=== PATIENT | female | born 1985 | race African-American/Black ===

== ENCOUNTER 2023-10-23 16:57 | Emergency (ER) | payer SELFPAY ==
--- NOTE | ~2023-10-23 | XR_ITS ---
EXAMINATION: XR CHEST CLINICAL INFORMATION: Cough. Chest pain. COMPARISON: None available. TECHNIQUE: 2 views of the chest were obtained. FINDINGS: Heart size is normal. The lungs are clear. There is no pleural effusion or pneumothorax. No acute osseous abnormality. XR/XR chest 2V IMPRESSION: No acute cardiopulmonary disease.
--- NOTE | 2023-10-23 17:08 | ED_ITS ---
HPI - General Adult General Chief complaint: Upper Respiratory Symptoms Stated complaint: covid +, sore throat, hx of cancer Time Seen by Provider: 10/23/23 18:18 Source: patient Mode of arrival: ambulatory Limitations: no limitations History of Present Illness ED Provider: DELL MANCINI narrative: 38 yo female s/p finishing treatment for lymphoma (lives in [facility] and her treatment is there) completed therapy June and has been traveling to see friends and family. Just came back from [place] and has been sick with scratchy throat, cough, weakness, runny nose, headaches, body aches worsening x 7 days. She is not vaccinated against COVID. She took a test and was positive today came to ED to get checked out. She states her hands feel tingly as well she had this with chemo it went away and now it is back MD complaint: viral syndrome Onset (ago): day(s) (7) Location: head, mouth and chest Radiation: non-radiation Severity: moderate Quality: aching Pain Consistency: constant Relieving factors: none Exacerbating factors: movement Associated symptoms: cough, fever/chills, headaches, loss of appetite, malaise and weakness Treatments prior to arrival: none Related Data Allergies Allergy/AdvReac Type Severity Reaction Status Date / Time No Known Allergies Allergy Verified 10/23/23 17:13 Review of Systems 2 Review of Systems: Constitutional : No Fever, pos Chills, pos Fatigue ENT/Mouth : pos sore throat, pos Rhinorrhea Eyes: No Eye Pain, No Swelling, No Redness Cardiovascular : No Chest Pain, No SOB, No Dyspnea on Exertion Respiratory : No Cough, No Sputum Gastrointestinal : No Nausea, No Vomiting, No Diarrhea, No abdominal Pain Genitourinary : No Dysuria, No Urinary Frequency, No Hematuria, Musculoskeletal : No joint pain, No Myalgias, No Joint Swelling Skin : No Skin Lesions, No rash Neuro : pos Weakness, No Numbness, No Dizziness, positive Headache Psych : No Anxiety/Panic, No Depression All other systems reviewed and are negative [facility]LY [facility] Past Medical History Attestation statement: The following information was validated with the patient. Source: old records reviewed Medical History Lymphoma Social History Social History (Updated 10/23/23 @ 19:07 by Dulce Olmos DO) Alcohol intake: current Alcohol intake frequency: holidays/special occasions only Patient Tobacco Use Status: Never used Tobacco Smoked in Last 30 Days: No Use of substances other than those prescribed or required for medical reasons: Yes Substance Use Type: Marijuana Advance Directives: No Advance Directives Information Provided: No Patient : No Physical Exam ED Vital Signs: Vital Signs - 24 hr 10/23/23 17:09 10/23/23 19:03 Temperature 98.1 F 99.1 F Pulse Rate 108 H 110 H Respiratory Rate 18 20 Blood Pressure 113/73 118/69 Pulse Oximetry 100 99 Oxygen Delivery Method Room Air Room Air BMI result Body Mass Index 21.7 Appearance: Alert. Oriented X3. No acute distress. Eyes: Pupils equal, round and reactive to light. ENT: Pharynx mild erythema no exudates Neck: Normal inspection. Neck supple. CVS: Normal heart rate and rhythm. Pulses normal. Respiratory: No respiratory distress. Breath sounds normal. dry hacking cough Abdomen: Soft and nontender. Skin: Skin warm and dry. Normal skin color. Normal skin turgor. Extremities: No lower extremity edema. Neuro: Oriented X 3. No motor deficit. No sensory deficit. Course Course Course Narrative: This is an RME: Additional HPI, ROS, PE not included below will be deferred to primary provider. RME assessment and note performed by: Moni Woodruff PA-C This is a [id number], with a hx of lymphoma just completed chemotherapy in June, presenting to the ER with complaints of cough, runny nose, headache, body aches x 7 days. Recent travel from [place] to [place]. Pt states that she tested positive for COVID today. Plan: viral swabs, CXR Reevaluation(s) Reevaluation #1: ddimer positive CTA ordered Reevaluation #2: signed out to Dr. Green pending CTA Medications Administered Discontinued Medications Generic Name Dose Route Start Last Admin Trade Name Freq PRN Reason Stop Dose Admin Acetaminophen 975 mg 10/23/23 18:28 10/23/23 18:40 Acetaminophen 325 Mg Tablet PO 10/23/23 18:29 975 mg ONCE ONE Administration Sodium Chloride 1,000 mls @ 999 mls/hr 10/23/23 18:28 10/23/23 19:09 Ns IV 10/23/23 19:28 999 mls/hr .Q1H1M ONE Administration Medical Decision Making Medical Decision Making MDM Narrative: 38 yo female with PMH of lymphoma she cannot tell me exactly what kind and she lives in [facility] - she notes she had last treatment in June now is traveling to see friends and family at this time she contracted viral illness during her travels with URI symptoms and cough - + for COVID but 7 days of symptoms out of window for paxlovid - given her complaints will obtain labs, EKG, ddimer, hydrate her and provide supportive care. She is not hypoxic. Differential Diagnosis Differential Diagnoses: The differential diagnosis associated with the presentation includes COVID, pneumonia, dehydration, anemia, low prob VTE Admission/Observation Consideration of admission/observation: Escalation of care including admission/observation considered Lab Data MDM Lab Attestation statement: I reviewed the patient's lab results. 10/23/23 19:11 10/23/23 19:11 Labs: Lab Results 10/23/23 10/23/23 Range/Units 17:21 19:11 WBC 6.0 (4.8-10.8) X10*3/uL RBC 4.41 (4.20-5.50) X10*6/uL Hgb 10.2 L (12.0-16.0) g/dl Hct 31.4 L (37.0-47.0) % MCV 71.2 L (80.0-98.0) fL MCH 23.1 L (27.0-33.0) pg MCHC 32.5 (31.0-35.0) g/dl RDW 17.0 H (11.0-16.0) % Plt Count 145 L (160-400) X10*3/uL MPV Not Reportable Immature Gran % (Auto) Cancelled Neut % (Auto) Cancelled Lymph % (Auto) Cancelled Iron % (Auto) Cancelled Eos % (Auto) Cancelled Baso % (Auto) Cancelled Lymph # (Auto) Cancelled Iron # (Auto) Cancelled Eos # (Auto) Cancelled Baso # (Auto) Cancelled Abs Immat Gran (auto) Cancelled Absolute Neuts (auto) Cancelled Absolute Nucleated RBC 0.000 (0.0-0.012) X10*3/uL Nucleated RBC % (auto) 0.0 (0.0-0.2) /100WBC Neutrophils % (Manual) 81 H (45-73) % Lymphocytes % (Manual) 7 L (20-40) % Monocytes % (Manual) 9 (2-11) % Eosinophils % (Manual) 3 (0-4) % Abs Neuts (Manual) Not Reportable Lymphocytes # (Manual) 0.4 L (1.2-4.9) X10*3/uL Monocytes # (Manual) 0.5 (0.1-1.2) X10*3/uL Eosinophils # (Manual) 0.2 (0.0-0.4) X10*3/uL Platelet Estimate NORMAL (NORMAL) Plt Morphology Comment NORMAL RBC Morphology NOTED Ovalocytes 1+ (5-14) /OIF Schistocytes 1+ (0-2) /OIF D-Dimer High Sensitivty 312 NG/ML Sodium 137 (135-145) mmol/L Potassium 3.7 (3.3-5.1) mmol/L Chloride 105 (96-108) mmol/L Carbon Dioxide 24 (22-29) mmol/L Anion Gap 12 (12-20) BUN 10 (9-16) mg/dL Creatinine 1.00 (0.5-1.4) mg/dL Estim Creat Clear Calc 72.8 Estimated GFR > 60 Random Glucose 77 (60-115) mg/dL Calcium 9.3 (8.4-10.2) mg/dL Total Bilirubin 0.4 (0.0-1.0) mg/dL Direct Bilirubin 0.2 (0.0-0.5) mg/dL AST 25 (5-31) U/L ALT 15 (0-31) U/L Alkaline Phosphatase 190 H (39-117) U/L Troponin I High Sens 6.0 (<3.5-17.0) ng/L Total Protein 8.1 H (6.5-8.0) g/dL Albumin 4.0 (3.5-5.0) g/dL Beta HCG, Quant < 2 mIU/mL Influenza Type A (PCR) NEGATIVE (Negative) Influenza Type B (PCR) NEGATIVE (Negative) RSV RNA Qual (PCR) NEGATIVE (Negative) SARS-CoV-2 RNA (RT-PCR) POSITIVE A (Negative) Independent Interpretation I performed an independent interpretation of an: EKG and Plain X-Ray (no pneumonia) Interpretation: Rate: 100 Rhythm: NSR [place]: normal Normal P waves. Normal GERRY. Normal QRS complex. ST T wave : normal no MARVEL qTC: 428 prior studies: no acute ischemia The study has been interpreted contemporaneously by me. . Radiology Impression Discussion of test interpretation with radiology: I have reviewed the radiologist's reading. Prescription Management I considered prescription management with: Antiviral and Other Discharge Plan Discharge Clinical Impression: COVID-19 Patient Disposition: Still a Patient Instructions: COVID-19 (Coronavirus Disease 2019) (ED) Print Language: Greenlandic
[2023-10-23 17:09] VITALS: BP 113/73; PULSE 108; RESP 18; TEMP 36.7; O2SAT 100; BMI 21.7
[2023-10-23 18:04] LABS: Influenza A PCR NEGATIVE (Negative); Influenza B PCR NEGATIVE (Negative); Resp Syncy Virus RNA Qual PCR NEGATIVE (Negative); SARS COV2 PCR INHOUSE POSITIVE (Negative)
--- NOTE | 2023-10-23 18:18 | ECG_ITS ---
Test Reason : S0B COVID Blood Pressure : / mmHG Vent. Rate : 100 BPM Atrial Rate : 100 BPM P-R Int : 152 ms QRS Dur : 068 ms QT Int : 332 ms P-R-T Axes : 069 066 051 degrees QTc Int : 428 ms Normal sinus rhythm Normal ECG No previous ECGs available Referred By: Dulce Olmos Electronically Signed By:Isaiah Birmingham
[2023-10-23] MEDS: Acetaminophen 325 MG TABLET 975 MG PO (18:40)
[2023-10-23 19:03] VITALS: BP 118/69; PULSE 110; RESP 20; TEMP 37.3; O2SAT 99
[2023-10-23] MEDS: 0.9 % Sodium Chloride 1,000 ML 999 ML IV (19:09)
[2023-10-23 19:18] LABS: Hematocrit 31.4 % (37.0-47.0); Hemoglobin 10.2 g/dl (12.0-16.0); Mean Corpuscular HGB Conc 32.5 g/dl (31.0-35.0); Mean Corpuscular Hemoglobin 23.1 pg (27.0-33.0); Mean Corpuscular Volume 71.2 fL (80.0-98.0); Platelet Count 145 X10*3/uL (160-400); Red Blood Count 4.41 X10*6/uL (4.20-5.50)
[2023-10-23 19:26] LABS: D Dimer High Sensitivity 312 NG/ML
[2023-10-23 19:39] LABS: Alanine Aminotransferase 15 U/L (0-31); Alkaline Phosphatase 190 U/L (39-117); Anion Gap 12 (12-20); Aspartate Amino Transferase 25 U/L (5-31); Bilirubin Direct 0.2 mg/dL (0.0-0.5); Bilirubin Total 0.4 mg/dL (0.0-1.0); Blood Urea Nitrogen 10 mg/dL (9-16); Calcium 9.3 mg/dL (8.4-10.2); Carbon Dioxide 24 mmol/L (22-29); Chloride 105 mmol/L (96-108); Creatinine Clr Calc Pharmacy 72.8; Estimated Glomerular Filt Rate > 60; Glucose Random 77 mg/dL (60-115); Potassium 3.7 mmol/L (3.3-5.1); Sodium 137 mmol/L (135-145); Total Protein 8.1 g/dL (6.5-8.0)
[2023-10-23 20:09] LABS: Eosinophils Absolute Manual 0.2 X10*3/uL (0.0-0.4); Eosinophils Percent Manual 3 % (0-4); Lymphocytes Absolute Manual 0.4 X10*3/uL (1.2-4.9); Lymphocytes Percent Manual 7 % (20-40); Monocytes Absolute Manual 0.5 X10*3/uL (0.1-1.2); Monocytes Percent Manual 9 % (2-11); Neutrophils Percent Manual 81 % (45-73)
[2023-10-23 20:11] LABS: Ovalocytes 1+ (5-14) /OIF; RBC Morphology NOTED; Schistocytes 1+ (0-2) /OIF
[2023-10-23 20:12] LABS: Platelet Estimate NORMAL (NORMAL); Platelet Morphology Comment NORMAL
[2023-10-23 20:44] LABS: HCG Quantitative < 2 mIU/mL
[2023-10-23 21:44] LABS: B Type Natriuretic Peptide 14 pg/mL (<100)
[2023-10-23] MEDS: Acetaminop/Codeine 120/12/5 mL 5 ML SOLUTION 10 ML PO (22:03)
[2023-10-23] MEDS: Ketorolac Tromethamine 15 MG/ML VIAL 10 MG IVPUSH (22:03)
[2023-10-23 22:11] VITALS: BP 118/69; PULSE 110; RESP 20; TEMP 37.3; O2SAT 99
== END 2023-10-23 22:13 | disposition home or self-care (01) ==
PROVIDERS: Emergency Medicine; Physician Assistant Medical; Emergency Provider Emergency Medicine
DX: U07.1 COVID-19 (principal); C85.90 Non-Hodgkin lymphoma, unspecified, unspecified site; R05.9 Cough, unspecified; R09.89 Other specified symptoms and signs involving the circulatory and respiratory systems
CPT/HCPCS: 0241U; 36415; 71046; 80048; 80076; 83880; 84484; 84702; 85007; 85027; 85379; 93005; 96361; 96374; 99284; 99285; J1885

== ENCOUNTER → 2023-10-23 18:18 | Outpatient (BNV) | payer SELFPAY | PROVIDERS: Emergency Provider Emergency Medicine; Visit Provider Internal Medicine Cardiovascular Disease | DX: R06.02 Shortness of breath (principal) | CPT/HCPCS: 93010 ==

== ENCOUNTER 2023-10-27 13:43 | Emergency (ER) | payer SELFPAY ==
--- NOTE | ~2023-10-27 | XR_ITS ---
EXAMINATION: XR CHEST CLINICAL INFORMATION: Covid, ongoing cough COMPARISON: 2 view chest 10/23/2023 TECHNIQUE: 2 views of the chest were obtained. FINDINGS: There is some patchy density seen at the left lung base along with some blunting of the left lateral costophrenic angle. The posterior costophrenic angle is sharp. Small area of infiltrate is suspected. No other abnormality is seen. The heart and pulmonary vessels appear normal. XR/XR chest 2V IMPRESSION: Small area of infiltrate left lung base.
--- NOTE | 2023-10-27 13:59 | ED.GENADULT ---
HPI - General Adult General Chief complaint: General Medical Stated complaint: coughing blood, nose bleed, lightheaded Time Seen by Provider: 10/27/23 14:45 Source: patient and old records reviewed Mode of arrival: ambulatory Limitations: no limitations History of Present Illness ED Provider: Rita Clarke NP HPI narrative: Patient is a 38-year-old female with history of lymphoma, recently diagnosed with COVID on 10/22, had symptoms for 7 days prior to that diagnosis, presenting to the emergency department with complaint of nasal congestion, sinus pain and pressure, epistaxis, dizziness and an episode of hemoptysis after epistaxis. She resides primarily in [facility] but is visiting the and [place] currently. Denies chest pain or palpitations. Denies abdominal pain, nausea, vomiting or diarrhea. Denies sore throat. Reports bilateral ear pressure. MD complaint: epistaxis, hemoptysis, dizziness, sinus pressure Onset (ago): day(s) Associated symptoms: cough and fever/chills (subjective) Treatments prior to arrival: other Related Data Previous Rx's ?Medication ?Instructions ?Recorded hydrocodone-homatropine 5 mg-1.5 5 ml PO Q4-6H PRN cough #100 mL 10/23/23 mg/5 mL (5 mL) oral syrup (Hycodan) ibuprofen 600 mg tablet 600 mg PO Q6H PRN pain #14 tabs 10/23/23 amoxicillin 875 mg-potassium 1 tab PO BID #14 tabs 10/27/23 clavulanate 125 mg tablet doxycycline hyclate 100 mg capsule 100 mg PO BID #14 caps 10/27/23 Allergies Allergy/AdvReac Type Severity Reaction Status Date / Time No Known Allergies Allergy Verified 10/27/23 14:01 Review of Systems Review of Systems: As per HPI. Yes all other systems are reviewed and are negative Constitutional: Constitutional: Reports as per HPI [facility]LY [facility] Past Medical History Medical History Lymphoma Social History Social History (Updated 10/23/23 @ 19:07 by Dulce Olmos DO) Alcohol intake: current Alcohol intake frequency: holidays/special occasions only Patient Tobacco Use Status: Never used Tobacco Substance Use Type: Marijuana Advance Directives: No Do you have a plan to hurt others: No Plan Physical Exam ED Vital Signs: Vital Signs - 24 hr 10/27/23 14:00 Temperature 97.5 F Pulse Rate 95 Respiratory Rate 18 Blood Pressure 99/66 Pulse Oximetry 100 Oxygen Delivery Method Room Air BMI result Body Mass Index 23.9 Vital signs have been reviewed and appear to be correct. Blood pressure normal. Heart rate normal. Respiratory rate normal. Temperature normal. Oxygen saturation normal. Const General: cooperative and no acute distress Orientation/consciousness: oriented to person, oriented to place, oriented to time and patient oriented x3 Limitations: no limitations HENMT Head: Yes normocephalic and Yes atraumatic Ears: external ears normal, EAC's normal and TM abnormal bulging on the right, erythematous on the right and with fluid behind the TM on the left General nose exam: Normal external nose present, Normal nasal mucous membranes and turbinates present, Normal septum present and No nasal discharge present Face and sinus: Yes face symmetric and Yes sinus tenderness Mouth: Normal oral and palatal mucosa present, oropharynx normal and moist mucous membranes Throat: Yes uvula midline Eyes Conjunctivae: conjunctival abnormal bilateral conjunctival injection diffuse Pupils: Equal, round and reactive pupils present EOM: EOMs intact bilaterally Neck Neck: Yes normal visual inspection, Yes full ROM, Yes no lymphadenopathy, Yes no meningeal signs and Yes supple Chest Chest palpation & inspection: normal inspection of the chest and normal palpation of entire chest wall Resp Effort & Inspection: normal respiratory effort and able to speak in complete sentences Auscultation: clear to auscultation bilaterally Cardio Rate: regular rate Rhythm: regular rhythm Heart sounds: S1 normal heart sound present and S2 normal heart sound present GI Palpation (GI): Soft to palpation and nontender Auscultation: normoactive bowel sounds General: Yes no CVA tenderness Back/Spine/Pelvis Back: no CVA tenderness Skin General skin exam: elasticity normal and turgor normal Neuro General: oriented to person, oriented to place, oriented to time, patient oriented x3, moves all extremities, no meningeal signs, no focal motor deficits and CN's II-XI intact bilaterally Cranial nerves: Yes Equal, round and reactive pupils present Cognition (Neuro): normal cognition Extrem General: Yes full ROM, Yes no pedal edema and Yes no calf tenderness Psych Mental Status: mental status grossly normal Affect: normal affect Thought process: Normal thought process present Course Course Course Narrative: RME performed by Gillian Christopher PA-C. Patient is a 38 year old assigned female at presenting to the emergency department with a now resolved nose bleed, cough, and dizziness. Patient states that she was seen here on 10/23/2023 and diagnosed with COVID-19. Detailed physical exam and review of systems are deferred to the negative checker. EKG and labs ordered. Patient placed back in the waiting room pending room availability and results. Medical Decision Making Medical Decision Making [facility] Narrative: Patient is a 38-year-old female with history of lymphoma, recently diagnosed with COVID on 10/22, had symptoms for 7 days prior to that diagnosis, presenting to the emergency department with complaint of nasal congestion, sinus pain and pressure, epistaxis, dizziness and an episode of hemoptysis after epistaxis. On exam patient is awake, A+Ox3, VS WNL, afebrile, normal neurological exam without focal deficits, physical exam findings as above. Given reported symptoms and physical exam findings, initial differential includes rhinosinusitis, acute otitis media, pneumonia. Unlikely TB but will obtain CXR. PE unlikely based on Years criteria, patient is not tachycardic, tachypneic, hypoxic, and denies chest pain. Labs notable for anemia not at trasnfusable level, no significant electrolyte abnormalities. EKG shows normal sinus rhythm. X-ray chest notable for small infiltrate left lung base. My interpretation is in agreement with the radiologist's interpretation. Physical exam findings consistent with AOM of right ear. Patient is tolerating PO, no increased work of breathing, no hypoxia, feel she stable for discharge home on oral antibiotics. Will treat with Augmentin and doxycycline given history of lymphoma. Patient states she is traveling to [place] on 11/18, staying there for a few days then returning to [facility] where she resides primarily. Instructed patient that she will need a repeat chest x-ray to ensure resolution of her pneumonia and recommended that she has this done either in this emergency department or at an urgent care prior to flying to [place] on 11/18. Advised patient she should follow up with her primary care provider when she returns to [facility] as well. Return precautions for which she should come back to the ED sooner were discussed at bedside. Patient verbalized understanding of and agreement with plan. Differential Diagnosis Differential Diagnoses: The differential diagnosis associated with the presentation includes As per [facility]. Lab Data [facility] Lab Attestation statement: I reviewed the patient's lab results. As per MDM. 10/27/23 15:09 10/27/23 15:09 Labs: Lab Results 10/27/23 Range/Units 15:09 WBC 3.9 L (4.8-10.8) X10*3/uL RBC 4.14 L (4.20-5.50) X10*6/uL Hgb 9.4 L (12.0-16.0) g/dl Hct 29.4 L (37.0-47.0) % MCV 71.0 L (80.0-98.0) fL MCH 22.7 L (27.0-33.0) pg MCHC 32.0 (31.0-35.0) g/dl RDW 16.8 H (11.0-16.0) % Plt Count 182 D (160-400) X10*3/uL MPV Not Reportable Immature Gran % (Auto) Cancelled Neut % (Auto) Cancelled Lymph % (Auto) Cancelled [place] % (Auto) Cancelled Eos % (Auto) Cancelled Baso % (Auto) Cancelled Lymph # (Auto) Cancelled [place] # (Auto) Cancelled Eos # (Auto) Cancelled Baso # (Auto) Cancelled Abs Immat Gran (auto) Cancelled Absolute Neuts (auto) Cancelled Absolute Nucleated RBC 0.000 (0.0-0.012) X10*3/uL Nucleated RBC % (auto) 0.0 (0.0-0.2) /100WBC Neutrophils % (Manual) 72 (45-73) % Band Neutrophils % 4 (3-5) % Lymphocytes % (Manual) 10 L (20-40) % Atypical Lymphs % (Man) 1 (0-6) % Monocytes % (Manual) 8 (2-11) % Eosinophils % (Manual) 2 (0-4) % Metamyelocytes % 2 % Myelocytes % 1 % Abs Neuts (Manual) 3.0 (2.0-8.3) X10*3/uL Lymphocytes # (Manual) 0.4 L (1.2-4.9) X10*3/uL Monocytes # (Manual) 0.3 (0.1-1.2) X10*3/uL Eosinophils # (Manual) 0.1 (0.0-0.4) X10*3/uL Metamyelocytes # 0.1 X10*3/uL Platelet Estimate NORMAL (NORMAL) Plt Morphology Comment NORMAL RBC Morphology NOTED Hypochromasia 1+ (5-14) /OIF Microcytosis 1+ (5-14) /OIF Ovalocytes 1+ (5-14) /OIF Schistocytes 1+ (0-2) /OIF Sodium 139 (135-145) mmol/L Potassium 3.9 (3.3-5.1) mmol/L Chloride 106 (96-108) mmol/L Carbon Dioxide 26 (22-29) mmol/L Anion Gap 11 L (12-20) BUN 8 L (9-16) mg/dL Creatinine 0.82 (0.5-1.4) mg/dL Estim Creat Clear Calc 75.0 Estimated GFR > 60 Random Glucose 75 (60-115) mg/dL Calcium 9.0 (8.4-10.2) mg/dL Magnesium 1.8 (1.6-2.6) mg/dL Total Bilirubin 0.4 (0.0-1.0) mg/dL AST 20 (5-31) U/L ALT 11 (0-31) U/L Alkaline Phosphatase 136 H (39-117) U/L Total Protein 7.7 (6.5-8.0) g/dL Albumin 3.7 (3.5-5.0) g/dL Independent Interpretation I performed an independent interpretation of an: Plain X-Ray Interpretation: Small infiltrate to left lung base. Radiology Impression Discussion of test interpretation with radiology: I have reviewed the radiologist's reading. Radiologist Impression: FINDINGS: There is some patchy density seen at the left lung base along with some blunting of the left lateral costophrenic angle. The posterior costophrenic angle is sharp. Small area of infiltrate is suspected. No other abnormality is seen. The heart and pulmonary vessels appear normal. XR/XR chest 2V IMPRESSION: Small area of infiltrate left lung base. External Record Review External record reviewed: Inpatient record and Office record Prescription Management I considered prescription management with: Antibiotic Discharge Plan Discharge Clinical Impression: Left lower lobe pneumonia Acute otitis media Qualifiers: Laterality: right Patient Disposition: Home, Self-Care Instructions: Ear Infection (ED), Community Acquired Pneumonia (DC) Additional Instructions: You were evaluated in the emergency department today for symptoms related to your recent COVID infection. Your chest x-ray showed evidence of left lower lobe pneumonia. Your physical exam also showed an ear infection of your right ear. You are being treated with 2 antibiotics, please complete the full course of both antibiotics as prescribed. You will need a repeat chest x-ray to ensure that your pneumonia has resolved. We recommend having this done either here at the ED or at a local urgent care before you leave for [place]. We also recommend following up with your primary care provider once you return to [facility]. Return to the ED sooner if you develop chest pain, shortness of breath or difficulty breathing, additional episodes of coughing up blood, fever 100.4? F or greater or any other concerning symptoms. Prescriptions: New amoxicillin-pot clavulanate 875-125 mg tablet 1 tab PO BID Qty: 14 0RF doxycycline hyclate 100 mg capsule 100 mg PO BID Qty: 14 0RF No Action ibuprofen 600 mg tablet 600 mg PO Q6H PRN (Reason: pain) Qty: 14 0RF hydrocodone-homatropine [Hycodan] 5-1.5 mg/5 mL (5 mL) syrup 5 ml PO Q4-6H PRN (Reason: cough) Qty: 100 0RF Rx Instructions: Partial Fill upon patient request. Print Language: Danish
[2023-10-27 14:00] VITALS: BP 99/66; PULSE 95; RESP 18; TEMP 36.4; O2SAT 100; BMI 23.9
--- NOTE | 2023-10-27 14:03 | ECG_ITS ---
Test Reason : COUGHIMG Blood Pressure : / mmHG Vent. Rate : 084 BPM Atrial Rate : 084 BPM P-R Int : 170 ms QRS Dur : 070 ms QT Int : 354 ms P-R-T Axes : 074 060 048 degrees QTc Int : 418 ms Normal sinus rhythm Normal ECG When compared with ECG of 23-OCT-2023 18:52, No significant change was found Referred By: Gillian Christopher Electronically Signed By:LASHELL REYNOSO
[2023-10-27 15:30] LABS: Hematocrit 29.4 % (37.0-47.0); Hemoglobin 9.4 g/dl (12.0-16.0); Mean Corpuscular Hemoglobin 22.7 pg (27.0-33.0); Platelet Count 182 X10*3/uL (160-400); Red Blood Count 4.14 X10*6/uL (4.20-5.50); Red Cell Distribution Width 16.8 % (11.0-16.0); White Blood Count 3.9 X10*3/uL (4.8-10.8)
[2023-10-27 15:35] LABS: Alanine Aminotransferase 11 U/L (0-31); Albumin Level 3.7 g/dL (3.5-5.0); Alkaline Phosphatase 136 U/L (39-117); Anion Gap 11 (12-20); Aspartate Amino Transferase 20 U/L (5-31); Bilirubin Total 0.4 mg/dL (0.0-1.0); Blood Urea Nitrogen 8 mg/dL (9-16); Carbon Dioxide 26 mmol/L (22-29); Chloride 106 mmol/L (96-108); Estimated Glomerular Filt Rate > 60; Glucose Random 75 mg/dL (60-115); Magnesium 1.8 mg/dL (1.6-2.6); Potassium 3.9 mmol/L (3.3-5.1); Sodium 139 mmol/L (135-145); Total Protein 7.7 g/dL (6.5-8.0)
[2023-10-27 16:08] LABS: Atypical Lymphs Percent Manual 1 % (0-6); Band Neutrophils Percent 4 % (3-5); Eosinophils Absolute Manual 0.1 X10*3/uL (0.0-0.4); Eosinophils Percent Manual 2 % (0-4); Lymphocytes Absolute Manual 0.4 X10*3/uL (1.2-4.9); Lymphocytes Percent Manual 10 % (20-40); Metamyelocytes Absolute 0.1 X10*3/uL; Metamyelocytes Percent 2 %; Monocytes Absolute Manual 0.3 X10*3/uL (0.1-1.2); Monocytes Percent Manual 8 % (2-11); Myelocytes Percent 1 %; Neutrophils Percent Manual 72 % (45-73)
[2023-10-27 16:12] LABS: Hypochromasia 1+ (5-14) /OIF; Microcytosis 1+ (5-14) /OIF; Ovalocytes 1+ (5-14) /OIF; Platelet Estimate NORMAL (NORMAL); RBC Morphology NOTED; Schistocytes 1+ (0-2) /OIF
[2023-10-27 16:13] LABS: Platelet Morphology Comment NORMAL
[2023-10-27 17:28] VITALS: BP 102/72; PULSE 91; RESP 18; TEMP 37.1; O2SAT 100
[2023-10-27 17:33] VITALS: BP 102/72; PULSE 91; RESP 18; TEMP 37.1; O2SAT 100
== END 2023-10-27 17:35 | disposition home or self-care (01) ==
PROVIDERS: Physician Assistant Medical; Emergency Provider Emergency Medicine
DX: J18.1 Lobar pneumonia, unspecified organism (principal); R42 Dizziness and giddiness; R05.9 Cough, unspecified
CPT/HCPCS: 36415; 71046; 80053; 83735; 85007; 85027; 93005; 99283; 99284

== ENCOUNTER → 2023-10-27 14:03 | Outpatient (BNV) | payer SELFPAY | PROVIDERS: Emergency Provider Emergency Medicine; Visit Provider Internal Medicine | DX: J18.9 Pneumonia, unspecified organism (principal) | CPT/HCPCS: 93010 ==